=== PATIENT | male | born 1945 | race American Indian/Alaskan Native ===

== ENCOUNTER 2016-10-24 12:16 | Day surgery (SDC) | payer MEDICARE ==
[2016-10-24] MEDS ORDERED: NACL 0.9% 1000 ML 1,000 ML IV SCH (14:00)
[2016-10-24] MEDS ORDERED: DIPRIVAN 10 MG/ML IV ONE ×2 (15:50)
[2016-10-24] MEDS ORDERED: TRIPLE ANTIBIOTIC TP ONE ×2 (16:07→16:55)
--- NOTE | 2016-10-24 16:10 | Anesthesia Consultation ---
Anesthesia Consult and Med Hx Date of service: 10/24/16 - Airway Anesthetic Teeth Evaluation: Poor, Dentures ROM Head & Neck: Adequate Mental/Hyoid Distance: Adequate Mallampati Class: Class II Intubation Access Assessment: Probably Good - Pulmonary Exam CTA: Yes - Cardiac Exam Cardiac Exam: RRR - Pre-Operative Health Status ASA Pre-Surgery Classification: ASA3 Proposed Anesthetic Plan: MAC - Pulmonary COPD: Yes - Cardiovascular System Hx Hypertension: Yes - Central Nervous System Hx Seizures: Yes (convulsions) CVA: Yes - Gastrointestinal Hx Gastroesophageal Reflux Disease: Yes - Endocrine Hx Renal Disease: Yes (stage 2 kidney disease)
--- NOTE | 2016-10-24 16:10 | Anesthesia Day of Surgery ---
Anesthesia Day of Surgery - Day of Surgery Patient Examined: Yes Patient H&P Reviewed: Yes Patient is NPO: Yes
--- NOTE | 2016-10-24 17:11 | Post Anesthesia Evaluation ---
- Post Anesthesia Evaluation Patient Participated: Yes Airway Patent: Yes Stable Respiratory Function: Yes Nausea/Vomiting: No Temp > 96.8F: Yes Pain Manageable: Yes Adequeate Hydration: Yes Anesthesia Complications: No Block Receding Appropriately: Not Applicable Patient on Ventilator: No
--- NOTE | 2016-10-24 18:11 | Operative Report ---
Operative Report Operative Report: Date of procedure: 10/24/2016 Procedure: Esophagogastroduodenoscopy . Declogging of a gastrojejunostomy tube, using a gastrojejunostomy tube brush Attending physician: Jason Núñez MD Entry Level Management: Jason Núñez MD Indication: Patient is a 71-year-old male [place] resident who presented with nausea vomiting and epigastric discomfort. Patient also has a gastrojejunostomy tube in place that lately has not been functioning well. This procedure is done to assess patient and hopefully direct treatment based on the findings. Consent: Informed consent was obtained after advising the patient and family regarding nature of this procedure, its indications, potential benefits as well as possible complications including but not limited to bleeding perforation and adverse reaction to medication, infection as well as other cardiopulmonary complications. An informed written and verbal consent was then obtained after due opportunity was provided for questions and answers. Monitoring: Patient was monitored continuously with pulse oximetry and electrocardiographic recordings as well as blood pressure recordings. Vital signs remained stable throughout this procedure with no untoward events. Preoperative assessment: Patient was assessed immediately prior to this procedure for capacity to tolerate monitored anesthesia care and moderate sedation as well as general anesthesia. Patient's ASA classification is [3], Mallampati class is [2], Hyomental distance is [3]. Instrument: [employer] video endoscope Medications: Propofol given intravenously in divided doses. For details please refer to anesthesia records. Description of procedure: Patient was placed in the left lateral decubitus position after achieving sedation, the endoscope was introduced into the esophagus under direct vision. It was then advanced beyond the esophagus into the stomach and then beyond the stomach into the duodenum and to the second portion of the duodenum. It was subsequently withdrawn with careful inspection of all mucosal surfaces with the following findings. Findings: The gastrojejunostomy tube was properly positioned. The jejunostomy port of the tube was placed deep beyond second portion of the duodenum. I was however was noted that as the lumen of the tube goes through the pylorus, the pylorus pyloric channel lumen was decreased significantly. The esophagus however, the stomach and examined portions of the duodenum beyond the second portion were normal. After removing the endoscope, with the patient still sedated given the malfunction of the gastrojejunostomy tube, also given that the tube appeared to have adequate good caliber with no obvious structural defects, it was elected that we attempt to declogging the tube. Subsequently, using a gastrojejunostomy tube brush, both ports of the tube including the jejunostomy port and the gastric port were carefully brushed and flushed continuously water until the ports became completely patent. After establishing patency of the 2 ports, the site was then cleaned and draped carefully and tube was secured against the abdominal wall. Patient tolerated procedure well with no untoward events. Impression: Normal esophageal gastroduodenoscopy with well-positioned gastrojejunostomy tube. Malfunctioning gastrojejunostomy tube status post successful declogging of tube. Plan: The gastrojejunostomy tube should be flushed at least 6 times with 100 mL of water each. In addition, the tube site should be cleaned and draped with sterile gauze after applying Triple Antibiotic on a daily basis. Also, the tube should be flushed additionally after giving medications. Also keep head of bed elevated at 30 to avoid aspiration events. If the tube becomes clogged, patient may require a new gastrojejunostomy tube to be placed by the radiologist under fluoroscopy.
[2016-10-24 18:56] VITALS: BP 136/73
== END 2016-10-24 12:17 | disposition home or self-care (01) ==
LOC: GIO 12:16
PROVIDERS: ATTEND Internal Medicine Gastroenterology
DX: K94.23 Gastrostomy malfunction (principal); F03.90 Unspecified dementia, unspecified severity, without behavioral disturbance, psychotic disturbance, mood disturbance, and anxiety; K21.9 Gastro-esophageal reflux disease without esophagitis; J44.9 Chronic obstructive pulmonary disease, unspecified; I12.9 Hypertensive chronic kidney disease with stage 1 through stage 4 chronic kidney disease, or unspecified chronic kidney disease; N18.2 Chronic kidney disease, stage 2 (mild); F32.9 Major depressive disorder, single episode, unspecified; D64.9 Anemia, unspecified; E78.5 Hyperlipidemia, unspecified; Z86.73 Personal history of transient ischemic attack (TIA), and cerebral infarction without residual deficits; Z79.899 Other long term (current) drug therapy
CPT/HCPCS: 43235; J2704; A6250